=== PATIENT | female | born 1940 | race Caucasian/White ===

== ENCOUNTER 2021-02-22 09:45 | Inpatient (IN) ==
--- NOTE | 2020-12-30 14:28 | Anesthesiology Consultation ---
Date of Service December 30, 2020 Assessment & Plan (1) Encounter for pre-operative examination: Chart Review Chart Review: Pending: Refer to Additional Notes / Consult section (pending response from PCP/heme evaluation and preop Covid testing ) and Patient NOT seen in Pre Admission Testing Pt initially scheduled for surgery 08/11/20 and seen in PAT on 08/06/20- was rescheduled 09/28/20 and then again to 01/19/21 due to Covid surge. Did discuss thrombocytosis with patient's PCP (Dr. Osullivan) via telephone on 12/30/20 (platelets have been slowly increasing since 2017 per PCP)- PCP is attempting to get patient set up for heme appt prior to surgery- will await response. Surgeon's office also informed. - Check BSG AM DOS. Per nursing assessment 12/30/20, pt resides in [facility]. Admits to local travel only. Wears PPE. No known Covid positive contacts or Covid related symptoms. No known Covid infection in the past 90 days. Pt will follow up for surgeon regarding preop Covid testing= will await results. Cardiology Clearance 08/10/20 = "Do not recommend further cardiovascular testing based on twelve-lead EKG results alone. Clinically, patient has no cardiovascular complaints... Based on history, physical examination and the above information, do not recommend further invasive or noninvasive cardiovascular testing or procedures prior to proceeding with the planned knee replacement. Patient should be considered a low cardiovascular risk candidate." History Surgery Operation Date: 01/19/21 13:05 Proposed Procedures p Left Total Knee Arthroplasty - Paras Guzmán DO Height/Weight Height: 5 ft 4 in Weight: 99.337 kg Allergies Allergy/AdvReac Type Severity Reaction Status Date / Time latex Allergy Hives Verified 12/30/20 12:22 sulfamethoxazole Allergy skin Verified 12/30/20 12:22 [From Bactrim] redness, itching trimethoprim [From Bactrim] Allergy skin Verified 12/30/20 12:22 redness, itching Medications Home Medications Medication Instructions Recorded Confirmed Last Taken acetaminophen [Tylenol Extra 500 mg PO Q6H PRN 07/29/20 12/30/20 Unknown Strength] aspirin 81 mg PO QAM 07/29/20 12/30/20 Unknown calcium carbonate [Calcium 600] 600 mg PO BID 07/29/20 12/30/20 Unknown chromium 1,000 mcg PO QAM 07/29/20 12/30/20 Unknown coenzyme Q10 [CoQ-10] 100 mg PO QAM 07/29/20 12/30/20 Unknown diphenhydramine-acetaminophen 1 tab PO HS PRN 07/29/20 12/30/20 Unknown [Tylenol PM Extra Strength] furosemide 80 mg PO QAM 07/29/20 12/30/20 Unknown glimepiride 2 mg PO BID 07/29/20 12/30/20 Unknown lysine [L-Lysine] 500 mg PO QAM 07/29/20 12/30/20 Unknown magnesium 250 mg PO QAM 07/29/20 12/30/20 Unknown pravastatin 40 mg PO HS 07/29/20 12/30/20 Unknown pregabalin [Lyrica] 150 mg PO BID 07/29/20 12/30/20 Unknown pyridoxine (vitamin B6) [Vitamin 200 mg PO QAM 07/29/20 12/30/20 Unknown B-6] solifenacin [Vesicare] 5 mg PO QAM 07/29/20 12/30/20 Unknown cranberry-[id number]-[id number]-Tr phos 1 tab PO QAM 12/30/20 12/30/20 Unknown losartan 100 mg PO BID 12/30/20 12/30/20 Unknown omega-3 fatty acids [[place] 3 Fish 3,000 mg PO QAM 12/30/20 12/30/20 Unknown Oil] potassium 99 mg PO QAM 12/30/20 12/30/20 Unknown Past Medical History Medical History Degenerative disc disease DM type 2 (diabetes mellitus, type 2) NIDDM Fibromyalgia HTN (hypertension) Hyperlipemia Leaky heart valve 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 ROM WNL History of cholecystectomy History of colonoscopy History of D&C History of hernia repair History of right knee joint replacement History of tubal ligation Social History Smoking Status: Never smoker Do You Dip or Chew Tobacco: No Hx Alcohol Use: No Hx Substance Use: No substance use type: does not use Testing Laboratory Results 12/29/20= WBC: 5.4 H/H: 12.8/39.1 PLATELETS: 665 (Platelets in 07/2020 were 588) SODIUM: 139 POTASSIUM: 4.5 CHLORIDE: 101 CO2: 33 BUN: 22 CREATININE: 0.99 GLUCOSE: 209 HGB A1C: 6.4 UA: Negative Electrocardiogram Date: 08/06/20 SR with first degree block at 51bpm. iLBBB. (Patient had Echo done 03/2020 for ev aluation of edema which was unremarkable. Non-pitting edema on exam at PAT visit 08/06/20. Pt was later cleared by cardio for surgery on 08/10/20) Chest X-Ray Date: 08/06/20 FINDINGS: The heart is enlarged. There is no failure. There is no lobar consolidation. There are minor left basilar atelectatic changes. IMPRESSION: Cardiomegaly and minor left basilar atelectasis. No acute findings. Echocardiogram Date: 04/03/20 Other Findings: no LVH LVEF 60%. No RWMA. Mild MR/AR.
--- NOTE | 2021-01-16 22:29 | History & Physical Report ---
Date of Service January 19, 2021 Assessment & Plan (1) Degenerative joint disease of left knee: I have indicated the patient for left total knee replacement. The risks, benefits and complications of surgery were explained to the patient which include but not limited to infection, acute blood loss, DVT/PE, injury to nerves, vessels, bone, soft tissue, arthrofibrosis, chronic pain, failure of the prosthesis, knee dislocation, leg length discrepancy, need for additional surgery, cardiac and pulmonary events and . The patient wished to proceed with surgery and informed consent was obtained at this time. We will plan for 81mg ASA BID post-operatively for DVT prophylaxis. Upon discharge the patient will be discharged home with home health services. Appropriate clearances by PCP were obtained. History of Present Illness Chief Complaint: Left knee pain/DJD Primary Care Provider: Reginaldo Osullivan The patient is a 80 year old female who presents with complaints of severe left knee pain and DJD. The patient has failed outpatient conservative treatments to this point which included NSAIDs, IA corticosteroid injection and a home exercise/walking program. The patient's pain and limited function have progressed to the point where they severely hinder their activities of daily living and they no longer tolerate exercise programs. They are requesting to proceed with total knee replacement surgery. Allergies Allergy/AdvReac Type Severity Reaction Status Date / Time latex Allergy Hives Verified 12/30/20 12:22 sulfamethoxazole Allergy skin Verified 12/30/20 12:22 [From Bactrim] redness, itching trimethoprim [From Bactrim] Allergy skin Verified 12/30/20 12:22 redness, itching Home Medications Medication Instructions Recorded Confirmed Type acetaminophen [Tylenol Extra 500 mg PO Q6H PRN 07/29/20 12/30/20 History Strength] aspirin 81 mg PO QAM 07/29/20 12/30/20 History calcium carbonate [Calcium 600] 600 mg PO BID 07/29/20 12/30/20 History chromium 1,000 mcg PO QAM 07/29/20 12/30/20 History coenzyme Q10 [CoQ-10] 100 mg PO QAM 07/29/20 12/30/20 History diphenhydramine-acetaminophen 1 tab PO HS PRN 07/29/20 12/30/20 History [Tylenol PM Extra Strength] furosemide 80 mg PO QAM 07/29/20 12/30/20 History glimepiride 2 mg PO BID 07/29/20 12/30/20 History lysine [L-Lysine] 500 mg PO QAM 07/29/20 12/30/20 History magnesium 250 mg PO QAM 07/29/20 12/30/20 History pravastatin 40 mg PO HS 07/29/20 12/30/20 History pregabalin [Lyrica] 150 mg PO BID 07/29/20 12/30/20 History pyridoxine (vitamin B6) [Vitamin 200 mg PO QAM 07/29/20 12/30/20 History B-6] solifenacin [Vesicare] 5 mg PO QAM 07/29/20 12/30/20 History cranberry-B.ulbzmbmz-Z-Nk phos 1 tab PO QAM 12/30/20 12/30/20 History losartan 100 mg PO BID 12/30/20 12/30/20 History omega-3 fatty acids [[place] 3 Fish 3,000 mg PO QAM 12/30/20 12/30/20 History Oil] potassium 99 mg PO QAM 12/30/20 12/30/20 History Past Med/Surg History Medical History Degenerative disc disease DM type 2 (diabetes mellitus, type 2) NIDDM Fibromyalgia HTN (hypertension) Hyperlipemia Leaky heart valve 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 ROM WNL History of cholecystectomy History of colonoscopy History of D&C History of hernia repair History of right knee joint replacement History of tubal ligation Family History Brother Diabetes Mother Diabetes Other No family history of adverse response to anesthesia Social History Smoking Status: Never smoker Second Hand Exposure: Yes (hx -- when was alive); Do You Dip or Chew Tobacco: No; Tobacco Cessation Education Requested by Patient: No Hx Alcohol Use: No Hx Substance Use: No Preferred Language: Chadian Communication Ability: Effective Manager Oncology Required: No Beliefs That Will Affect Care: None Current Living Situation: Family Current Living Situation Comment: dtr lives with pt Other Information That Helps Us Care for You: No Feels Safe at Home: Yes Safety Concerns: Feels Safe At This Time Assistive Devices: Glasses Review of Systems Review of Systems: All systems reviewed & are unremarkable except as noted in HPI & below Constitutional: as per Subjective / HPI Physical Exam Physical Exam: LLE NVSI +EHL/FHL/TA/GS SILT grossly, +2 DP pulse, compartments soft NT, limited painful ROM of the knee, antalgic gait. Constitutional: WD/WN, vitals as above Eyes: PERRL, conjunctivae normal, anicteric sclerae ENMT: external ear and nose normal, oropharynx normal Neck: trachea midline, no thyromegaly Respiratory: normal respiratory effort, lungs clear to auscultation Cardiovascular: RRR, no murmur, no edema Gastrointestinal (Abdomen): normal bowel sounds, soft, nontender, no hepatosplenomegaly Musculoskeletal: no cyanosis or clubbing, extremities motor strength 5/5 Skin: no rashes, warm and dry Neurologic: patellar DTR's 2+ bilat, sensation intact Psychiatric: A+Ox3, euthymic affect Lymphatic: no cervical or axillary lymphadenopathy Results & Data Results & Data ([facility]) Diagnostic Findings Multiple views of the knee demonstrates severe tricompartmental DJD with complete loss of the lateral joint space. +osteophytes, +sclerosis, +subchondral cysts.
--- NOTE | 2021-02-18 20:58 | History & Physical Report ---
Date of Service February 22, 2021 Assessment & Plan (1) Degenerative joint disease of left knee: I have indicated the patient for left total knee replacement. The risks, benefits and complications of surgery were explained to the patient which include but not limited to infection, acute blood loss, DVT/PE, injury to nerves, vessels, bone, soft tissue, arthrofibrosis, chronic pain, failure of the prosthesis, knee dislocation, leg length discrepancy, need for additional surgery, cardiac and pulmonary events and . The patient wished to proceed with surgery and informed consent was obtained at this time. We will plan for 81mg ASA BID post-operatively for DVT prophylaxis. Upon discharge the patient will be discharged home with home health services. Appropriate clearances by PCP were obtained. History of Present Illness Chief Complaint: Left knee pain/DJD Primary Care Provider: Reginaldo Osullivan The patient is a 80 year old female who presents with complaints of severe left knee pain and DJD. The patient has failed outpatient conservative treatments to this point which included NSAIDs, IA corticosteroid injection, HEP. The patient's pain and limited function have progressed to the point where they severely hinder their activities of daily living and they no longer tolerate exercise programs. They are requesting to proceed with total knee replacement surgery. Allergies Allergy/AdvReac Type Severity Reaction Status Date / Time latex Allergy Hives Verified 02/22/21 10:34 sulfamethoxazole Allergy skin Verified 02/22/21 10:34 [From Bactrim] redness, itching trimethoprim [From Bactrim] Allergy skin Verified 02/22/21 10:34 redness, itching Home Medications Medication Instructions Recorded Confirmed Type acetaminophen [Tylenol Extra 500 mg PO Q6H PRN 07/29/20 02/22/21 History Strength] aspirin 81 mg PO QAM 07/29/20 02/22/21 History calcium carbonate [Calcium 600] 600 mg PO BID 07/29/20 02/22/21 History diphenhydramine-acetaminophen 1 tab PO HS 07/29/20 02/22/21 History [Tylenol PM Extra Strength] furosemide 80 mg PO QAM 07/29/20 02/22/21 History glimepiride 2 mg PO BID 07/29/20 02/22/21 History pravastatin 40 mg PO HS 07/29/20 02/22/21 History pregabalin [Lyrica] 150 mg PO BID 07/29/20 02/22/21 History solifenacin [Vesicare] 5 mg PO QAM 07/29/20 02/22/21 History losartan 100 mg PO BID 12/30/20 02/22/21 History Potassium Otc 99 mg PO QAM 02/09/21 02/22/21 History Past Med/Surg History Medical History Degenerative disc disease DM type 2 (diabetes mellitus, type 2) NIDDM Fibromyalgia HTN (hypertension) Hyperlipemia Leaky heart valve 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 ROM WNL History of cholecystectomy History of colonoscopy History of D&C History of hernia repair History of right knee joint replacement History of tubal ligation Nausea and vomiting after administration of anesthetic agent X 1-WAS YRS AGO Family History Brother Diabetes Mother Diabetes Other No family history of adverse response to anesthesia Social History Smoking Status: Never smoker Second Hand Exposure: Yes (SPOUSE USED TO SMOKE); Do You Dip or Chew Tobacco: No; Tobacco Cessation Education Requested by Patient: No Hx Alcohol Use: No Hx Substance Use: No Preferred Language: Uzbek Communication Ability: Effective Higher Education Administrator Required: No Beliefs That Will Affect Care: None Current Living Situation: Family Current Living Situation Comment: dtr lives with pt Other Information That Helps Us Care for You: No Feels Safe at Home: Yes Safety Concerns: Feels Safe At This Time Assistive Devices: Brace/Splint/Immobilizer and Glasses Assistive Devices Comment: KNEE BRACE PRN Review of Systems Review of Systems: All systems reviewed & are unremarkable except as noted in HPI & below Constitutional: as per Subjective / HPI Physical Exam Physical Exam: LLE NVSI +EHL/FHL/TA/GS SILT grossly, +2 DP pulse, compartments soft NT, limited painful ROM, 0-115 degrees of flexion, +crepitus. Constitutional: WD/WN, vitals as above Eyes: PERRL, conjunctivae normal, anicteric sclerae ENMT: external ear and nose normal, oropharynx normal Neck: trachea midline, no thyromegaly Respiratory: normal respiratory effort, lungs clear to auscultation Cardiovascular: RRR, no murmur, no edema Gastrointestinal (Abdomen): normal bowel sounds, soft, nontender, no hepatosplenomegaly Musculoskeletal: no cyanosis or clubbing, extremities motor strength 5/5 Skin: no rashes, warm and dry Neurologic: patellar DTR's 2+ bilat, sensation intact Psychiatric: A+Ox3, euthymic affect Lymphatic: no cervical or axillary lymphadenopathy Results & Data Results & Data ([facility]) Diagnostic Findings Multiple views of the knee demonstrates severe tricompartmental DJD with complete loss of the lateral joint space. +osteophytes, +sclerosis, +subchondral cysts.
[~2021-02-22 09:45] MED LIST: ACETAMINOPHEN 500 MG TAB PO SCH; BUPIVACAINE 0.25% 30 ML VIAL ONE; BUPIVACAINE 0.5 % 5 MG/1 ML PF 10ML VIAL ONE; CeleBREX 200 MG CAP PO SCH; FAMOTIDINE 20 MG TAB PO SCH; GABAPENTIN 300 MG CAP PO SCH; LR 500ML BOLUS IV SCH; LR 500ML BOLUS, THEN 15ML/HR IV SCH; METOCLOPRAMIDE HCL 10 MG TABLET PO SCH; ROPIVACAINE 0.5% HCL/PF 150 MG, BUPIVACAINE 0.75% MPF 20 ML, EPINEPHrine 30MG/30ML (OR ... INSTIL SCH; ceFAZolin 2000MG 2,000 MG/15 ML SYR IV SCH; dexAMETHasone 4 MG TAB PO SCH
[2021-02-22 10:50] LABS: Partial Thromboplastin Time 27.6 Seconds (21.0-31.0); Prothrombin Time 10.5 Seconds (9.0-12.0)
--- NOTE | 2021-02-22 10:55 | History & Physical Bridge Note ---
Date of Service February 22, 2021 History & Physical Bridge Note I have examined the patient, reviewed the History & Physical and in the interval since the performance of the History & Physical I have noted the following changes of clinical significance: no changes noted
[2021-02-22] MEDS ORDERED: ORTHO JOINT ANESTHETIC ONE (11:28)
[2021-02-22] MEDS ORDERED: PROPOFOL IV EMULSION 10 MG/ML 20 ML VIAL IV ONE (11:58)
[2021-02-22] MEDS ORDERED: LIDOCAINE HCL 2% 2 ML VIAL/AMP(20MG/ML) INFIL ONE (11:58)
[2021-02-22] MEDS ORDERED: MIDAZOLAM HCL 1 MG/ML 2ML VIAL ONE ×2 (11:58)
[2021-02-22] MEDS: TRANEXAMIC ACID 1,000 MG **IV Intra-op IV SCH ×2 (12:21→14:47)
[2021-02-22] MEDS ORDERED: ePHEDrine sulfate 50 MG/ML AMP IV PRN (12:22)
[2021-02-22] MEDS ORDERED: ATROPINE SULFATE 0.1 MG/ML 10ML SYR IV PRN (12:22)
[2021-02-22] MEDS: TRANEXAMIC ACID 1,000 MG **IV Pre-op IV SCH ×2 (12:22→12:30)
--- NOTE | 2021-02-22 14:45 | Post Operative Brief Note ---
Immediate Post Op Note v1 Date of Surgery February 22, 2021 Pre & Post Diagnosis Operation Date: 01/19/21 09:45 <No data on this case meets the specified criteria> Operation Date: 02/22/21 12:20 Pre-Op Diagnosis: Degenerative Joint Disease, Left Knee Post-Op Diagnosis: Degenerative Joint Disease, Left Knee I identified the patient and participated in the time-out.: Yes Procedure Operation Date: 01/19/21 09:45 <No data on this case meets the specified criteria> Operation Date: 02/22/21 12:20 Actual Procedures p Left Total Knee Arthroplasty(Left) - Paras Guzmán DO Surgeon Paras Guzmán DO Oxygraph Operator Darrel Guerrero Estimated Blood Loss 55 Findings Consistent with Post-Op Diagnosis Fluids See anesthesia report Specimens Proximal tibia and distal femur bone fragments Anesthesia Type Spinal MAC Complications none Disposition Disposition: Recovery Room Overlapping Procedure I was present for: the critical portions of procedure. I was immediately available: during the entire case. Back up surgeon: was not required during procedure.
--- NOTE | 2021-02-22 14:50 | Operative Report ---
Post Operative Report Pre & Post Diagnosis Operation Date: 01/19/21 09:45 <No data on this case meets the specified criteria> Operation Date: 02/22/21 12:20 Pre-Op Diagnosis: Degenerative Joint Disease, Left Knee Post-Op Diagnosis: Degenerative Joint Disease, Left Knee I identified the patient and participated in the time-out.: Yes Procedure Operation Date: 01/19/21 09:45 <No data on this case meets the specified criteria> Operation Date: 02/22/21 12:20 Actual Procedures p Left Total Knee Arthroplasty(Left) - Paras Guzmán DO Surgeon Paras Guzmán, Correctional Counselor/Case Manager Darrel Guerrero Estimated Blood Loss 55 Findings Consistent with Post-Op Diagnosis Fluids See anesthesia report Specimens Proximal tibia and distal femur bone fragments Anesthesia Type Spinal MAC Complications none Disposition Disposition: Recovery Room Indications The patient is a 80-year-old female presents with long history of severe left knee tricompartmental DJD and failed outpatient conservative treatments including NSAIDs, bracing, injections and home walking/exercise program. The patient's symptoms have progressed to the point where it has been difficult to perform normal activities of daily living. I have indicated the patient for a left total knee arthroplasty, the risks and benefits and complications of the procedure include but are not limited to infection bleeding damage to bone, nerves, vessels, surrounding soft tissue, blood clots, loss of function, leg length discrepancy, dislocation, failure of the components, need for additional surgery and . The patient wished to proceed with surgery at this time and informed consent was obtained. Appropriate clearances were obtained. Description of Procedure COMPONENTS USED: Juan persona knee system: Femur size 8 narrow, Tibia size E, Tibial articulating surface 10 CPS, Patella 28 mm oval Following induction of spinal anesthesia, a tourniquet was applied to the proximal aspect of the thigh and the patient's left leg was prepped and draped in the usual sterile manner. A timeout was performed, patient identified and site stephania confirmed. Appropriate pre-operative IV antibiotics were given. The limb was exsanguinated with an Esmarch bandage and tourniquet was inflated to 300 mmHg. A longitudinal midline incision was made over the anterior knee. Subcutaneous tissue was sharply dissected down to fascia. Electrocautery was used for hemostasis. Next a parapatellar arthrotomy was performed. Patella was everted and the knee was flexed. A Linder retractor was used to expose the synovium above on the anterior aspect of the femur and removed down to bone. Next, the anterior fat pad was removed to aid in visualization. The medial face of the tibia was cleared of soft tissue first with a Bovie and a rodríguez elevator. This tissue was retracted posteriorly using a blunt Hohmann. Next, the extra-medullary tibial cutting guide was placed to the anterior aspect of the tibia. The tibia resection level was set taking 2mm from the defective tibial condyle. Resection depth was once again confirmed with andrew wing. The medial and lateral collateral ligament was protected with two Hohmann retractors. The tibia guide was removed and proximal tibial bone fragment removed utilizing straight osteotome, electrocautery and Pat. Next, the distal femur intramedullary canal was accessed utilizing the step drill. The intramedullary distal femur cutting guide was placed into the canal and pinned into place. The distal femur was cut on the 5 degree setting. Next the cutting guide was removed and the femur was sized. Care was taken to ensure appropriate financial reserve clerk all rotation and 5 degree holes were drilled. A size 8 4-in-1 cutting block was placed on the distal end of the femur and secured into place with two short headed screws. Two bent Hohmann retractors were placed to protect the medial and lateral collateral ligaments. The oscillating saw was used to cut anterior, posterior, anterior chamfer and posterior chamfer. The four and one cutting block was removed and bone fragments excised. Laminar coin collector was placed laterally and the ACL and PCL were removed followed by the medial meniscus and posterior medial osteophytes. Aquamantys was utilized for any posterior medial bleeders and Orthomix injected into the posterior medial capsule. A laminar coin collector was then placed in the medial compartment and the lateral meniscus and posterior osteophytes were removed. Aquamantys was utilized for any posterior lateral bleeders and Orthomix injected into the posterior lateral capsule. Next, drop kristen and spacer block were placed with the leg in flexion and extension to assess alignment and flexion/extension gaps. Next, the proximal tibia was assessed and two bent Hohmans were placed medial and lateral to aid in visualization. The appropriate tibia size and rotation was selected and a size E tibial plate was pinned into place with appropriate rotation. Preparation of the tibia was completed utilizing the matching tibial drill and broach. I then turned my attention back to the distal femur in a trial femoral component was impacted into place. Appropriate femoral width was assessed and selected. Next the femur PS box cut guide was placed and cut made with the reciprocal saw and the PS box provisional placed. A trial size 10 PS tibia articular tray was placed and varus-valgus balance assessed in 0 degrees of extension and 30, 60 and 90 degrees of flexion. A final tibial articular surface size 10 CPS was chosen. Assess was gained to the patella and caliper utilized to measure width. The patella reamer was utilized and remaining bone removed with oscillating saw. A size 28 mm oval patella button was selected and the patella pegs drilled. Trial patella button was placed and tracking was assessed. The knee was found to be well balanced, well aligned with excellent patella tracking. The trials were removed and final components were obtained and assembled. The knee was irrigated copiously with sterile saline solution mixed with bacitracin. Access to the proximal tibia was once again obtained utilizing to the Hohmans and the proximal tibia and distal femur were dried with lap sponges. The final components were cemented into place and all excess cement was removed. A trial tibial articular surface was placed while cemented hardened. Knee stability was once again assessed and the final component inserted. A Betadine soak was performed. After 3 minutes, the knee was once more irrigated with copious sterile saline solution with bacitracin. The knee was injected with the remain ing Orthomix which includes a combination of Ropivicaine 0.5% 150mg, Bupivicaine 0.5%/Epinephrine 1:200,000 30ml, Toradol 30mg, Dexamethasone 4mg, Ketamine 10mg, Clonidine 100mcg and NSS 30ml solution. The capsulotomy was closed with #1 Vicryl followed by subcutaneous closure with nila. A sterile dry dressing was applied which included peewee incisional VAC, web roll and Fahad wrap. Tourniquet was deflated at 102 minutes. The patient tolerated the procedure well and was taken to the PACU in stable condition. Due to the complex nature of the procedure, the entire surgery was performed with the operational assistance of Darrel Guerrero PA-C. The secretary administrative assistant, under direct supervision, was involved in the actual performance of all aspects of the surgical procedure including patient positioning, hemostasis, tissue retraction, instrument management and wound closure. I attest to the content of the Intraoperative Record and any orders documented therein. Any exceptions are noted below.
[2021-02-22] MEDS ORDERED: LABETALOL HCL IV 5 MG/ML 20ML IV ONE (15:36)
[2021-02-22] MEDS: LABETALOL HCL IV 5 MG/ML 20ML IV PRN ×2 (15:36→15:41)
--- NOTE | 2021-02-22 15:36 | Anesthesiology Progress Note ---
Date of Service February 22, 2021 Anesthesia Post Procedure Vital Signs Vital Signs: Temp Pulse Pulse Resp BP Pulse Ox 02/22/21 15:30 75 16 179/88 H 100 02/22/21 15:20 74 16 154/77 H 100 02/22/21 15:12 36.8 C 75 16 158/67 H 99 02/22/21 10:42 36.8 C 81 18 210/79 H 93 Pain Intensity Left Knee: Pain Intensity: 5 Transfer of Care Handoff Completed per policy Notes Mental Status: alert / awake / arousable and participated in evaluation Nausea / Vomiting: adequately controlled Pain: adequately controlled Airway Patency, RR, SpO2: stable & adequate BP & HR: stable & adequate Hydration State: stable & adequate Neuraxial Anesthesia: was administered and sensory block is resolving Anesthetic Complications: no major complications apparent and Pt Satisfied with anesthetic care
--- NOTE | 2021-02-22 15:42 | XRay Report ---
LEFT KNEE 2 VIEWS History: Left total knee arthroplasty. Degenerative arthritis. Postop. FINDINGS: The patient is status post a left total knee arthroplasty. The hardware is intact. No fract ure or dislocation. Skin nila are in place. IMPRESSION: Left total knee arthroplasty. No evidence for hardware complication. ACT 112: Negative or not required by law. Electronically signed by: Cali Jefferson M.D. 02/22/2021 3:41 PM
--- NOTE | 2021-02-22 16:02 | Anesthesiology Progress Note ---
Date of Service February 22, 2021 Anesthesia Post Procedure Vital Signs Vital Signs: Temp Pulse Pulse Resp BP Pulse Ox 02/22/21 15:55 36.5 C 72 16 179/88 H 96 02/22/21 15:50 72 16 161/80 H 96 02/22/21 15:40 71 16 187/91 H 100 02/22/21 15:30 75 16 179/88 H 100 02/22/21 15:20 74 16 154/77 H 100 02/22/21 15:12 36.8 C 75 16 158/67 H 99 02/22/21 10:42 36.8 C 81 18 210/79 H 93 Pain Intensity Left Knee: Pain Intensity: 5 Transfer of Care Handoff Completed per policy Notes Mental Status: alert / awake / arousable and participated in evaluation Nausea / Vomiting: adequately controlled Pain: adequately controlled Airway Patency, RR, SpO2: stable & adequate BP & HR: stable & adequate Hydration State: stable & adequate Neuraxial Anesthesia: was administered and sensory block is resolving Anesthetic Complications: no major complications apparent and Pt Satisfied with anesthetic care
[2021-02-22] MEDS ORDERED: diphenhydrAMINE Capsule 25 MG CAP PO PRN (16:39)
[2021-02-22] MEDS ORDERED: ONDANSETRON INJ 2 MG/ML 2 ML VIAL IV PRN (16:39)
[2021-02-22] MEDS ORDERED: METOCLOPRAMIDE HCL INJ 5 MG/ML 2 ML VIAL IV PRN (16:39)
[2021-02-22] MEDS ORDERED: MAGNESIUM HYDROXIDE SUSP 30 ML UDC PO PRN (16:39)
[2021-02-22] MEDS ORDERED: HYDROmorphone INJ 0.5 MG/0.5 ML SYR IV PRN (16:39)
[2021-02-22] MEDS ORDERED: bisacodyL 10 MG SUPP PR PRN (16:39)
[2021-02-22] MEDS ORDERED: NALOXONE HCL 0.4 MG/1 ML VIAL/CARP IV PRN (16:39)
[2021-02-22] MEDS ORDERED: HYDROmorphone INJ 0.5 MG/0.5 ML SYR ONE (16:43)
[2021-02-22] MEDS ORDERED: PHARMACY GLYCEMIC MGMT CONSULT PRN (17:16)
[2021-02-22] MEDS ORDERED: GLUCOSE 10 TABS/TUBE PO PRN (17:30)
[2021-02-22] MEDS ORDERED: CARBOHYDRATES FOR HYPOGLYCEMIA PO PRN (17:30)
[2021-02-22] MEDS ORDERED: GLUCAGON FOR INJ 1 MG VIAL IM PRN (17:30)
[2021-02-22] MEDS ORDERED: GLUCOSE 40% GEL 15 GM TUBE PO PRN (17:30)
[2021-02-22] MEDS ORDERED: DEXTROSE 50% 50 ML SYRINGE IV PRN (17:30)
--- NOTE | 2021-02-22 17:41 | Orthopedic Progress Note ---
Date of Service February 22, 2021 Assessment & Plan (1) Degenerative joint disease of left knee: Status post left total knee arthroplasty -Ancef x24 DVT prophylaxis: SCDs, teds, 81 mg ASA twice daily Weight-bear as tolerates left lower extremity PT/OT Postoperative x-ray demonstrates a well aligned well fixed prosthesis without fracture or dislocation A.m. labs DC planning Subjective Post Operative Progress Note Patient seen in PACU, comfortable, denies complaints, pain well controlled, no acute issues. Review of Systems Review of Systems: All systems reviewed & are unremarkable except as noted in HPI & below Constitutional: as per Subjective / HPI Physical Exam Physical Exam: LLE NVSI +EHL/FHL/TA/GS SILT grossly, +2 DP pulse, compartments soft NT, dressing cdi. Constitutional: WD/WN, vitals as above Results & Data ([facility]) Vital Signs (Past 12 Hours) Vital Signs Temp Pulse Pulse Resp BP Pulse Ox 02/22/21 17:30 75 20 173/75 H 94 02/22/21 17:15 75 13 170/97 H 94 02/22/21 17:00 78 13 188/78 H 94 02/22/21 16:45 77 13 159/77 H 94 02/22/21 16:30 73 13 165/81 H 94 02/22/21 16:20 75 16 176/75 H 94 02/22/21 16:05 71 16 158/80 H 96 02/22/21 15:55 36.5 C 72 16 179/88 H 96 02/22/21 15:50 72 16 161/80 H 96 02/22/21 15:40 71 16 187/91 H 100 02/22/21 15:30 75 16 179/88 H 100 02/22/21 15:20 74 16 154/77 H 100 02/22/21 15:12 36.8 C 75 16 158/67 H 99 02/22/21 10:42 36.8 C 81 18 210/79 H 93
[2021-02-22] MEDS: ceFAZolin 2000MG 2,000 MG/15 ML SYR IV SCH (20:11)
[2021-02-22] MEDS: DOCUSATE SODIUM 100 MG CAP PO SCH (20:12)
[2021-02-22] MEDS: LOSARTAN POTASSIUM 50 MG TAB PO SCH (20:12)
[2021-02-22] MEDS ORDERED: SENNA 8.6 MG TAB PO SCH (21:00)
[2021-02-22] MEDS ORDERED: PRAVASTATIN SOD 40 MG TAB PO SCH (21:00)
[2021-02-22] MEDS ORDERED: LANTUS PER UNIT CHARGE SQ ONE (21:30)
[2021-02-22] MEDS: INSULIN ASPART 100 UNITS/ML 3 ML PEN SC SCH (21:49)
[2021-02-22] MEDS: PREGABALIN 150 MG CAP PO SCH (21:52)
[2021-02-22] MEDS: KETOROLAC TROMETHAMINE 15 MG/ML VIAL IV SCH (23:01)
[2021-02-22] MEDS: SODIUM CHLORIDE 0.9% 1000ML 1,000 ML IV SCH (23:01)
[2021-02-22] MEDS: ACETAMINOPHEN 500 MG TAB PO SCH (23:01)
[2021-02-22] MEDS: oxyCODONE HCL IR 5 MG TAB (IMMEDIATE RELEASE) PO PRN (23:10)
[2021-02-23] MEDS: INSULIN ASPART 100 UNITS/ML 3 ML PEN SC SCH ×4 (00:11→12:56)
[2021-02-23] MEDS: oxyCODONE HCL IR 5 MG TAB (IMMEDIATE RELEASE) PO PRN ×2 (00:13→14:12)
[2021-02-23] MEDS: VESICARE - ORDER AWAITING ACTION SCH ×2 (00:14→10:47)
[2021-02-23] MEDS: SODIUM CHLORIDE 0.9% 1000ML 1,000 ML IV SCH (03:58)
[2021-02-23] MEDS: ceFAZolin 2000MG 2,000 MG/15 ML SYR IV SCH (04:07)
[2021-02-23] MEDS: KETOROLAC TROMETHAMINE 15 MG/ML VIAL IV SCH ×2 (06:11→12:14)
[2021-02-23] MEDS: ACETAMINOPHEN 500 MG TAB PO SCH ×2 (06:11→14:13)
[2021-02-23 07:01] LABS: Hematocrit (blood only) 28.9 % (37-47); Hemoglobin 9.8 g/dL (12.0-16.0); Mean Corpuscular Hemoglobin 29.1 pg (25-34); Mean Corpuscular Hgb Conc 33.9 g/dL (32-36); Mean Corpuscular Volume 85.8 fL (80-100); Mean Platelet Volume 10.5 fL (7.4-10.4); Platelet Count 567 K/uL (130-400); RDW Coefficient of Variation 14.5 % (11.5-14.5); RDW Standard Deviation 45.4 fL (36.4-46.3); Red Blood Count 3.37 M/uL (4.2-5.4); White Blood Count 16.52 K/uL (4.8-10.8)
[2021-02-23 07:27] LABS: BUN Creatinine Ratio 27.1 (10-20); Calcium 8.3 mg/dl (8.5-10.1); Creatinine Clr Calc Pharmacy 48.4 ml/min; Est GFR (African American) 56.9; Est GFR (Non-African American) 49.1; Potassium 3.7 mmol/L (3.5-5.1)
[2021-02-23] MEDS ORDERED: ASPIRIN 81 MG ECTAB PO SCH (09:00)
[2021-02-23] MEDS ORDERED: MULTIVITAMIN TAB PO SCH (09:00)
[2021-02-23] MEDS ORDERED: FUROSEMIDE 80 MG TAB PO SCH (09:00)
[2021-02-23] MEDS: DOCUSATE SODIUM 100 MG CAP PO SCH (09:24)
[2021-02-23] MEDS: LOSARTAN POTASSIUM 50 MG TAB PO SCH (09:24)
[2021-02-23] MEDS: PREGABALIN 150 MG CAP PO SCH (09:28)
--- NOTE | 2021-02-23 13:30 | Orthopedic Progress Note ---
Date of Service February 23, 2021 Assessment & Plan (1) Degenerative joint disease of left knee: Status post left total knee arthroplasty POD#1 -Ancef x24 DVT prophylaxis: SCDs, teds, 81 mg ASA twice daily Weight-bear as tolerates left lower extremity PT/OT Postoperative x-ray demonstrates a well aligned well fixed prosthesis without fracture or dislocation A.m. labs - as above, hgb 9.8 DC planning - home with Admission and Anticipated Discharge Date Admission Date: February 22, 2021 Subjective Post Operative Progress Note Patient seen sitting in chair at bedside, comfortable, denies complaints, pain well controlled, no acute issues. Denies F/C/N/V/SOB/CP. Review of Systems Review of Systems: All systems reviewed & are unremarkable except as noted in HPI & below Constitutional: as per Subjective / HPI Physical Exam Physical Exam: LLE NVSI +EHL/FHL/TA/GS SILT grossly, +2 DP pulse, compartments soft NT, dressing cdi. Constitutional: WD/WN, vitals as above Results & Data ([facility]) Vital Signs (Past 12 Hours) Vital Signs Temp Pulse Resp BP Pulse Ox 02/23/21 11:12 36.4 C L 74 16 151/72 H 93 02/23/21 07:38 36.8 C 84 16 144/73 H 93 02/23/21 03:55 36.9 C 81 18 129/79 97 Laboratory Results 02/23/21 02/23/21 02/23/21 Range/Units 11:55 08:21 06:50 WBC (4.8-10.8) K/uL RBC (4.2-5.4) M/uL Hgb (12.0-16.0) g/dL Hct (37-47) % MCV (80-100) fL MCH (25-34) pg MCHC (32-36) g/dL RDW Std Deviation (36.4-46.3) fL RDW Coeff of Perico (11.5-14.5) % Plt Count (130-400) K/uL MPV (7.4-10.4) fL Sodium 140 (136-145) mmol/L Potassium 3.7 (3.5-5.1) mmol/L Chloride 107 (98-107) mmol/L Carbon Dioxide 28 (21-32) mmol/L Anion Gap 5.0 (3-11) BUN 29 H (7-18) mg/dl Creatinine 1.08 (0.6-1.2) mg/dl Est Cr Clr Drug Dosing 48.4 ml/min Est GFR ( Amer) 56.9 Est GFR (Non-Af Amer) 49.1 BUN/Creatinine Ratio 27.1 H (10-20) Glucose 124 H (70-99) mg/dl POC Glucose 169 H 125 H (70-99) mg/dl Calcium 8.3 L (8.5-10.1) mg/dl 02/23/21 02/23/21 02/23/21 Range/Units 06:50 03:59 00:00 WBC 16.52 H (4.8-10.8) K/uL RBC 3.37 L (4.2-5.4) M/uL Hgb 9.8 L (12.0-16.0) g/dL Hct 28.9 L (37-47) % MCV 85.8 (80-100) fL MCH 29.1 (25-34) pg MCHC 33.9 (32-36) g/dL RDW Std Deviation 45.4 (36.4-46.3) fL RDW Coeff of Perico 14.5 (11.5-14.5) % Plt Count 567 H (130-400) K/uL MPV 10.5 H (7.4-10.4) fL Sodium (136-145) mmol/L Potassium (3.5-5.1) mmol/L Chloride (98-107) mmol/L Carbon Dioxide (21-32) mmol/L Anion Gap (3-11) BUN (7-18) mg/dl Creatinine (0.6-1.2) mg/dl Est Cr Clr Drug Dosing ml/min Est GFR ( Amer) Est GFR (Non-Af Amer) BUN/Creatinine Ratio (10-20) Glucose (70-99) mg/dl POC Glucose 154 H 278 H (70-99) mg/dl Calcium (8.5-10.1) mg/dl 02/22/21 02/22/21 02/22/21 Range/Units 21:14 21:02 15:17 WBC (4.8-10.8) K/uL RBC (4.2-5.4) M/uL Hgb (12.0-16.0) g/dL Hct (37-47) % MCV (80-100) fL MCH (25-34) pg MCHC (32-36) g/dL RDW Std Deviation (36.4-46.3) fL RDW Coeff of Perico (11.5-14.5) % Plt Count (130-400) K/uL MPV (7.4-10.4) fL Sodium (136-145) mmol/L Potassium (3.5-5.1) mmol/L Chloride (98-107) mmol/L Carbon Dioxide (21-32) mmol/L Anion Gap (3-11) BUN (7-18) mg/dl Creatinine (0.6-1.2) mg/dl Est Cr Clr Drug Dosing ml/min Est GFR ( Amer) Est GFR (Non-Af Amer) BUN/Creatinine Ratio (10-20) Glucose (70-99) mg/dl POC Glucose 336 H* 367 H* 103 H (70-99) mg/dl Calcium (8.5-10.1) mg/dl
--- NOTE | 2021-02-23 14:00 | Pharmacy Report ---
Pharmacy Glycemic Short Note 2 - Date of Service February 23, 2021 - Glycemic Short BSG Results (Last 24 hours): 02/22/21 02/22/21 02/22/21 15:17 21:02 21:14 Glucose POC Glucose 103 H 367 H* 336 H* 02/23/21 02/23/21 02/23/21 00:00 03:59 06:50 Glucose 124 H POC Glucose 278 H 154 H 02/23/21 02/23/21 08:21 11:55 Glucose POC Glucose 125 H 169 H OUTPATIENT ANTIDIABETIC REGIMEN: * glimepiride 2 mg BID * A1c 6.6% 08/06/20 ASSESSMENT: * Ms. GALAN admitted following left knee arthroplasty, received 8 mg of dexamethasone po preoperatively * BSGs controlled prior to surgery, was elevated last evening after an uncovered dinner and trended down overnight with 15 units of lantus and correctional insulin. * BSG this AM 125 mg/dL, added a carb coverage with breakfast as steroid may still have some effect this morning. Lunch BSG 169 mg/dL * Will continue current regimen, discharge orders are entered PLAN FOR INPATIENT GLYCEMIC CONTROL: * Hold outpatient oral diabetes medications * Basal insulin * Lantus held this AM, will redose tonight if needed * Bolus insulin * NovoLog per scale ACHS or Q6hrs while NPO * Goal Range: Low 110 mg/dL - High 140 mg/dL * Correction Factor: 20 mg/dL/unit * Nutritional / Prandial insulin per carb ratio of 1 unit per 15 grams CHO consumed PLAN FOR DISCHARGE: * Most recent A1c at goal, although > 3 months ago, recommend patient continue current outpatient regimen w/ outpatient follow-up and new A1c.
--- NOTE | 2021-02-23 23:21 | Discharge Summary ---
Date of Service February 23, 2021 Admission HPI Per Admitting Provider The patient is a 80 year old female who presents with complaints of severe left knee pain and DJD. The patient has failed outpatient conservative treatments to this point which included NSAIDs, IA corticosteroid injection, HEP. The patient's pain and limited function have progressed to the point where they severely hinder their activities of daily living and they no longer tolerate exercise programs. They are requesting to proceed with total knee replacement surgery. Principal Diagnosis Left total knee replacement Discharge Exam LLE NVSI +EHL/FHL/TA/GS SILT grossly, +2 DP pulse, compartments soft NT, dressing cdi. Constitutional WD/WN, vitals as above Discharge Data Allergies Allergy/AdvReac Type Severity Reaction Status Date / Time latex Allergy Hives Verified 02/22/21 10:34 sulfamethoxazole Allergy skin Verified 02/22/21 10:34 [From Bactrim] redness, itching trimethoprim [From Bactrim] Allergy skin Verified 02/22/21 10:34 redness, itching Procedures Performed Operation Date: 01/19/21 09:45 <No data on this case meets the specified criteria> Operation Date: 02/22/21 12:20 Actual Procedures p Left Total Knee Arthroplasty(Left) - Paras Guzmán DO Operation Date: 02/22/21 13:25 <No data on this case meets the specified criteria> Ordered Studies 02/22/21 05:00 US - OR guided needle placemen Routine Hospital Course (1) Degenerative joint disease of left knee: The patient is a 80 -year-old female who presents with long standing history of severe left knee DJD and failed outpatient conservative treatments. The patient's symptoms have progressed to the point where it has been difficult to perform even normal activities of daily living. I indicated the patient for a left total knee arthroplasty, the risks, benefits and complications of the procedure include but not limited to infection, bleeding, damage to bone, nerves, vessels, surrounding soft tissue, may develop blood clots, loss of function, leg length discrepancy, dislocation, failure of the components, loosening of the components, the need for additional surgery and . The patient wished to proceed with surgery at this time and informed consent was obtained. Hospital Course: On 02/22/21 the patient was taken to the operating room, adequate anesthesia administered and underwent a left total knee arthroplasty. The patient tolerated the procedure well and was taken to the PACU in stable condition. Post-operatively the patient was started on a DVT ppx medication and given appropriate IV antibiotics. Consults were placed to physical therapy, occupational therapy and case management. On POD#1, the patient did well overnight and their pain was well controlled. Labs were drawn and the Hgb was 9.8. The patient progressed well with PT. Dressings were changed at this time and the incision was clean, dry and intact. The patients hospital stay was relatively uneventful and they were deemed stable by the orthopedic team and consultants to be discharged home with HH on 02/23/21. Discharge Instructions: Upon discharge the patient may weight bear as tolerates through their operative extremity. They were instructed to keep the incision clean and dry at all times. The patient may shower but should not submerge the incision, avoid bathing, pools and hot tubs. The patient was given a script for pain medication and should take as instructed. The patient was given a script for DVT ppx 81mg ASA BID and should take as directed. The patient was instructed to not drive or travel for long distances until cleared to do so. If the patient develops any symptoms of fevers, chills, nausea, vomiting, increased redness, swelling, pain or drainage from the surgical site, they should notify the office and/or proceed to the nearest emergency room. The patient should follow up in 10-14 days after surgery for their routine post-operative follow-up appointment and should call the office, to confirm the date and time. Status post left total knee arthroplasty POD#1 -Ancef x24 DVT prophylaxis: SCDs, teds, 81 mg ASA twice daily Weight-bear as tolerates left lower extremity PT/OT Postoperative x-ray demonstrates a well aligned well fixed prosthesis without fracture or dislocation A.m. labs - as above, hgb 9.8 DC planning - home with Total Time Total Time Spent Total Time Spent (In Minutes): 30 Discharge Plan Discharge Items Patient Disposition: Home - Home Health Services Reason For Visit: Unilateral Primary Osteoarthritis, Left knee Discharge Diagnosis: Left total knee replacement Condition on Discharge: Good Activity: Per Instructions section Lifting: Wait until after follow-up appointment Bathing: Keep incision dry Bathing Comment: No bathing, pools or hot tubs. Sexual Activity: Wait until after follow-up appointment Exercise/Sports: Wait until after follow-up appointment Driving/Machine Use: No driving. Weightbearing: Full weightbearing Non-emergency contact: Primary Care Provider and Surgeon Call non-emergency contact if: you have any medication questions, your symptoms worsen, your pain is not controlled, your pain is worsening, your pain is unusual for you, your pain is concerning for you, you have a fever, your temperature is above 101, your wound has increased redness, your wound has increased drainage and your wound pain has increased Follow-up/Referrals: Paras Guzmán DO [Physician] - Reginaldo Osullivan D.O. [Primary Care Provider] - Diet: Carb Consistent or DM2 Addtl Attending Provider Instructions: ACTIVITY RECOMMENDATIONS: SELF CARE INSTRUCTIONS AFTER TOTAL KNEE REPLACEMENT A. You may need to continue a physical therapy program after discharge from the hospital. There are several options available to you. Your doctor will assist you in selecting the best one for you. 1. An out-patient facility 2 to 3 times a week for therapy or home therapy. 2. Continue working on all exercises taught to you in the hospital. Your goals should be to increase bending of your knee to 90 degrees and beyond and to fully straighten your knee. B. You may progress at your own pace from walking with a walker or crutches to a cane; then to no assistive devices. C. Make walking a part of your daily routine. Be up as much as comfortable with rest periods throughout the day. Rest with leg elevation is very important. Use the ice wrap frequently for the first 3-4 weeks. D. There are no restrictions on activities. You may ride in a car, shop, participate in inseam leveler and all social activities. E. Wear the long elastic stockings (HAMMAD hose) 20 hours a day for 2 weeks after surgery. They can be removed several times a day for laundering and for a bath. F. You may shower, no tub baths until cleared by your doctor. SPECIAL CARE INSTRUCTIONS: VERY IMPORTANT TO READ AND REVIEW A. There are a few signs you need to watch for after you are home. Call [facility] if you notice any of the followin. Increased severe knee pain. Some pain is expected especially when you exercise. 2. Increased swelling in your leg or knee; pain or swelling of the calf muscle in either lower leg. 3. Any fluid drainage from the incision. 4. Shortness of breath or chest pain. B. Please call [facility] at if you have any concerns or questions about your operation or recovery. The doctor or his nurse will return your call promptly. C. You must take antibiotics before dental work, bladder, bowel or other surgery. Your doctor will provide you with a permanent care to carry describing this precaution. IMPORTANT: * REMEMBER TO TAKE ASPIRIN, 81 MG, TWICE DAILY FOR 4 WEEKS UNLESS OTHERWISE DIRECTED. THIS IS YOUR BLOOD THINNER. * HIGH RISK PATIENTS MAY BE PRESCRIBED A STRONGER BLOOD THINNER. THIS WILL BE PROVIDED AT DISCHARGE. * CALL IF INCREASED PAIN, REDNESS, DRAINAGE OR FEVER GREATER THAT 101. * WEAR HAMMAD HOSE 20 HOURS PER DAY FOR 2 WEEKS. *MITCHELL incisional vac is a special dressing covering your incision. This dressing provides a sterile dry environment while you are healing. The dressing is to be left in place for 7 days post-operatively. Your home nurse or surgeon will remove. If you develop any redness or blisters or have any questions notify your surgeon immediately. FOLLOW UP VISIT: If appointment is not already scheduled: Please call [facility] to make a follow-up appointment for 2 weeks after your surgery at . Pending Studies at Discharge: No Stand-Alone Forms: My [facility], Opioid Pain Management, Smoking Cessation Medications and DC Order Prescriptions: New acetaminophen 500 mg Tablet 1,000 mg PO Q8 PRN (Reason: pain/fevers) Qty: 90 RF: 0 aspirin 81 mg Tablet,Delayed Release (Dr/Ec) 81 mg PO BID Qty: 56 RF: 0 oxycodone 5 mg Tablet 5 mg PO Q6H MDD 4 PRN (Reason: pain) Qty: 30 RF: 0 sennosides [Senokot] 8.6 mg Tablet 17.2 mg PO HS Qty: 28 RF: 0 Continued furosemide 40 mg Tablet 80 mg PO QAM RF: 0 pravastatin 40 mg Tablet 40 mg PO HS RF: 0 glimepiride 2 mg Tablet 2 mg PO BID RF: 0 calcium carbonate [Calcium 600] 600 mg calcium (1,500 mg) Tablet 600 mg PO BID RF: 0 solifenacin [Vesicare] 5 mg Tablet 5 mg PO QAM RF: 0 pregabalin [Lyrica] 150 mg Capsule 150 mg PO BID RF: 0 losartan 100 mg Tablet 100 mg PO BID RF: 0 Potassium Otc 99 mg PO QAM RF: 0 Discontinued acetaminophen [Tylenol Extra Strength] 500 mg Tablet 500 mg PO Q6H PRN (Reason: Pain) RF: 0 diphenhydramine-acetaminophen [Tylenol PM Extra Strength] 25-500 mg Tablet 1 tab PO HS RF: 0 aspirin 81 mg Tablet,Delayed Release (Dr/Ec) 81 mg PO QAM RF: 0 Discharge Orders: Discharge Order (Routine); Ordered 02/23/21 Ordered By: Paras Guzmán Admission Data Admit Date/Time: 02/22/21 15:21 Attending Provider: Paras Guzmán Admit Provider: Paras Guzmán Primary Care Provider: Reginaldo Osullivan Other Interventions: Discharge Summary Assessment (RN) Last Done: 02/23/21 14:18
== END 2021-02-23 15:03 | disposition home health service (06) | DRG 470 ==
LOC: ASU 09:45 → 3E 09:45 → EDSTATUS 13:25 → OBSVTOIN 15:21